=== PATIENT | male | born 1995 | race Caucasian/White ===

== ENCOUNTER 2017-04-27 04:15 | Emergency (ER) | payer OTHER ==
[2017-04-27 07:32] LABS: HEMOGLOBIN 15.4 gm/dl (14.0-17.5); RED BLOOD COUNT 4.77 M/UL (4.20-5.50); WHITE BLOOD COUNT 10.2 K/UL (4.5-11.0)
[2017-04-27 07:51] LABS: BUN/CREATININE RATIO 15 (0-10)
[2017-05-01] MEDS ORDERED: PERCOCET 5-3251 EACH PO (08:02)
[2017-05-01] MEDS ORDERED: IBUPROFEN800 MG PO (08:02)
[2017-05-01] MEDS ORDERED: ZOFRAN4 MG PO (08:03)
[2017-05-01] MEDS ORDERED: PERCOCET 10-321 EACH PO (12:57)
== END 2017-04-27 10:20 | disposition home or self-care (01) ==
LOC: ER1 04:15
PROVIDERS: Physician Assistant
DX: S42.021A Displaced fracture of shaft of right clavicle, initial encounter for closed fracture (principal); S40.211A Abrasion of right shoulder, initial encounter; F17.290 Nicotine dependence, other tobacco product, uncomplicated; V86.99XA Unspecified occupant of other special all-terrain or other off-road motor vehicle injured in nontraffic accident, initial encounter
CPT/HCPCS: 29240; 36415; 70450; 71020; 71260; 72125; 73030; 80053; 81001; 82550; 82553; 83874; 84484; 85025; 93005; 96361; 96374; 96375; 96376; 99284; J2270; J2405; J7030; J7050; Q9962

== ENCOUNTER → 2017-05-01 | Day surgery (SDC) | payer OTHER ==
[~2017-05-01] VITALS: Ht 188 cm; Wt 96.6 kg
[~2017-05-01] MED LIST: IBUPROFEN800 MG PO; PERCOCET 10-321 EACH PO; PERCOCET 5-3251 EACH PO; ZOFRAN4 MG PO
[2017-05-01 07:49] LABS: HEMOGLOBIN 15.7 gm/dl (14.0-17.5); RED BLOOD COUNT 4.86 M/UL (4.20-5.50); WHITE BLOOD COUNT 6.8 K/UL (4.5-11.0)
[2017-05-01 08:10] LABS: BUN/CREATININE RATIO 13 (0-10)
== END | disposition home or self-care (01) ==
LOC: OR 07:16
PROVIDERS: Orthopaedic Surgery
PROC: 0PS904Z Reposition Right Clavicle with Internal Fixation Device, Open Approach (ICD-10-PCS; principal; 2017-05-01 09:45)
DX: S42.001A Fracture of unspecified part of right clavicle, initial encounter for closed fracture (principal); K21.9 Gastro-esophageal reflux disease without esophagitis; Z82.49 Family history of ischemic heart disease and other diseases of the circulatory system; Z83.3 Family history of diabetes mellitus; Z98.890 Other specified postprocedural states; V89.2XXA Person injured in unspecified motor-vehicle accident, traffic, initial encounter
CPT/HCPCS: 36415; 76000; 80048; 85025; C1713; J0690; J2250; J2795; J3010; J7120